=== PATIENT | male | born 1960 | race Caucasian/White ===

== ENCOUNTER 2019-06-12 12:39 | Emergency (ER) | payer OTHER ==
[~2019-06-12] VITALS: Ht 170.2 cm; Wt 85.2 kg
[~2019-06-12 12:39] MED LIST: ACET500C5 PO; AMPI500C9 PO; CEPH-443 PO; GLIP5TAB13 PO; LINA5TAB PO; METF-849 PO; SITA100T11 PO; SULF1TAB31 PO
[2019-06-12 12:43] VITALS: Ht 170.2 cm; Wt 85.2 kg
[2019-06-12 13:50] VITALS: BP 125/73; PULSE 90; RESP 16
== END 2019-06-12 13:53 | disposition home or self-care (01) ==
LOC: FTE 12:39
DX: Z48.01 Encounter for change or removal of surgical wound dressing (principal)
CPT/HCPCS: 99283